=== PATIENT | female | born 1985 ===

== ENCOUNTER 2025-04-28 05:56 | Day surgery (SDC) | payer OTHER ==
[2025-04-24 12:21] LABS: BASO % 0.5 % (0.1-1.2); EOS # 0.09 (0.04-0.54); EOS % 1.1 % (0.7-7.0); LYMPH # 1.67 (1.18-3.74); LYMPH % 20.6 % (19.3-53.1); MEAN PLATELET VOLUME 10.90 fl (9.4-12.4); MONO # 0.64 (0.24-0.82); MONO % 7.9 % (4.7-12.5); NEUT # 5.64 (1.56-6.13); NEUT % 69.5 % (34.0-71.1); RED CELL DISTRIBUTION WIDTH 13.2 % (11.6-14.4)
[2025-04-24 12:25] VITALS: BP 125/84
[~2025-04-28] VITALS: Ht 180.3 cm; Wt 74.8 kg
[2025-04-28] MEDS ORDERED: CEFAZOLIN SODIUM 1,000 MG VIAL IV ONE (11:15)
[2025-04-28] MEDS ORDERED: SUGAMMADEX SODIUM 200 MG/2 ML VIAL IV ONE (12:45)
[2025-04-28] MEDS ORDERED: MORPHINE SULFATE 4 MG/ML VIAL IV ONE (12:55)
== END 2025-04-28 14:55 | disposition home or self-care (01) ==
LOC: CIR.AMB 05:56
PROVIDERS: ATTEND Orthopaedic Surgery Hand Surgery
DX: M19.041 Primary osteoarthritis, right hand (principal); M19.141 Post-traumatic osteoarthritis, right hand; S63.124A Dislocation of interphalangeal joint of right thumb, initial encounter